=== PATIENT | female | born 1960 | race Hispanic/Latino ===

== ENCOUNTER 2016-12-30 19:08 | Emergency (ER) | payer BC, MEDICARE ==
[2016-12-30 19:19] VITALS: BP 142/93; PULSE 122; RESP 18; TEMP 99; O2SAT 100
[2016-12-30] MEDS ORDERED: Sodium Chloride 0.9% 1,000 ML IV STA (19:27)
--- NOTE | 2016-12-30 19:30 | ED PDOC ---
HPI: Back Time Seen by Provider: 12/30/16 19:18 Chief Complaint (Nursing): Back Pain Chief Complaint (Provider): Back Pain/Abdominal Pain History Per: Patient, EMS History/Exam Limitations: no limitations Onset/Duration Of Symptoms: Days (2) Current Symptoms Are (Timing): Still Present Quality Of Discomfort: "Pain" Severity: Moderate Additional Complaint(s): Ashanti Jenkins is a 56 y/o female brought in by EMS on 12/30/2016 with complaints of back pain x2 days. Per EMS/patient, pain is localized in her back with radiation to the left side of her abdomen. Patient, prior to arrival, developed episodes of non-bloody vomiting as well as nausea, prompting her to call EMS. Patient reports associated mild dysuria but denies any chest pain or shortness of breath. Patient is routinely taking Oxycodone, Methadone, and Xanax at home. No numbness, tingles, weakness. No incontinence or constipation. Of note, patient has a past medical history of breast cancer (patient has had a mastectomy). Patient reports she has been cancer-free since. Past Medical History Reviewed: Historical Data, Nursing Documentation, Vital Signs Vital Signs: Last Vital Signs Temp 99 F 12/30/16 19:16 Pulse 122 H 12/30/16 19:16 Resp 18 12/30/16 19:16 BP 142/93 H 12/30/16 19:16 Pulse Ox 100 12/30/16 19:16 - Medical History PMH: HTN Other PMH: breast cancer ; chronic pain - Surgical History Surgical History: Back Surgery (x 2) Other surgeries: mastectomy - Family History Family History: States: Unknown Family Hx - Social History Alcohol: None Drugs: Denies - Home Medications Home Medications: Ambulatory Orders Medication Instructions Recorded Ciprofloxacin HCl [Cipro] 500 mg PO BID 7 Days 12/30/16 Ibuprofen [Motrin] 600 mg PO TID 7 Days 12/30/16 Tamsulosin [Flomax] 0.4 mg PO DAILY PRN #6 cap 12/30/16 - Allergies Allergies/Adverse Reactions: Allergies Allergy/AdvReac Type Severity Reaction Status Date / Time No Known Allergies Allergy Verified 03/21/15 13:27 Review of Systems ROS Statement: Except As Marked, All Systems Reviewed And Found Negative Gastrointestinal: Positive for: Nausea, Vomiting, Abdominal Pain. Negative for : Diarrhea Genitourinary Female: Positive for: Dysuria (mild) Musculoskeletal: Positive for: Back Pain Physical Exam - Reviewed Nursing Documentation Reviewed: Yes Vital Signs Reviewed: Yes - Physical Exam Appears: Positive for: Non-toxic, No Acute Distress Head Exam: Positive for: ATRAUMATIC, NORMOCEPHALIC Skin: Positive for: Normal Color, Warm, Dry Eye Exam: Positive for: Normal appearance, EOMI, PERRL Neck: Positive for: Normal, Painless ROM, Supple Cardiovascular/Chest: Positive for: Regular Rate, Rhythm. Negative for: Murmur Respiratory: Positive for: Normal Breath Sounds. Negative for: Respiratory Distress Gastrointestinal/Abdominal: Positive for: Tenderness ((+) left flank and LLQ ) Back: Positive for: L CVA Tenderness. Negative for: R CVA Tenderness Extremity: Positive for: Normal ROM. Negative for: Tenderness, Pedal Edema, Deformity Neurologic/Psych: Positive for: Alert, Oriented (x3). Negative for: Motor/ Sensory Deficits - Laboratory Results Result Diagrams: 12/30/16 20:40 12/30/16 20:40 Interpretation Of Abn Labs: 18.4 wbc - ECG ECG: Positive for: Interpreted By Me, Viewed By Me ECG Rhythm: Positive for: Sinus Tachycardia (mild) O2 Sat by Pulse Oximetry: 100 (RA) Pulse Ox Interpretation: Normal - Progress ED Course And Treament: 2201: Stable. AAOx3. Has capacity to make decisions. Is pain free. Tolerated PO. Ambulating with no issues. Mini mental status exam intact. Does not want to stay for admission and further IV tx and evaluation. Pt. states she has to let people in her house so has to leave. Advised pain will return and infection can get worse and she can or have decreased functioning. Is aware and will AMA. Aware oral tx with antibiotics is not the right 1st line tx, but as she is leaving will give some level of tx orally. Will give IV cipro in ER. Medical Decision Making Medical Decision Makin:18 Initial Impression- Back Pain/Abd Pain Initial Plan- * CT Abd/Pelvis * EKG * CMP * Lipase * Urine Dip * CBC w/ differential * Morphine 4 mg IV * Sodium Chloride 1,000 ml IV * Toradol 30 mg IV * Zofran 4 mg IV * Re-assess Documented by Alen Rivera, acting as a scribe for Charlie Rivera MD. All medical record entries made by the Scribe were at my direction and personally dictated by me. I have reviewed the chart and agree that the record accurately reflects my personal performance of the history, physical exam, medical decision making, and the department course for this patient. I have also personally directed, reviewed, and agree with the discharge instructions and disposition. Disposition - Clinical Impression Clinical Impression: UTI (urinary tract infection), Sepsis, Nephrolithiasis - Patient ED Disposition Is Patient to be Admitted: No Counseled Patient/Family Regarding: Studies Performed, Diagnosis, Rx Given - Disposition Referrals: [facility] [Outside] - 12/31/16 Pierre Wilson MD [Staff Provider] - 12/31/16 Disposition: Against Medical Advice Disposition Time: 22:27 Condition: FAIR Additional Instructions: You are going against medical advice. You are taking your own risk. You have an infection and kidney stones. You can or have decreased functioning in general from these conditions. You are getting an antibiotics prescription as you are not willing to get IV treatment in the hospital. Return soon as possible for further evaluation and treatment. Prescriptions: Ciprofloxacin HCl [Cipro] 500 mg PO BID 7 Days Tamsulosin [Flomax] 0.4 mg PO DAILY PRN #6 cap PRN Reason: Pain Ibuprofen [Motrin] 600 mg PO TID 7 Days Instructions: Urinary Tract Infection in Women (ED), Ureteral Stones (ED)
[2016-12-30] MEDS ORDERED: HYDROmorphone 0.5 mg/0.5 ml ISec ONE (20:16)
[2016-12-30 20:45] LABS: BASO # 0.1 K/uL (0.0-0.2); BASO % 0.4 % (0.0-2.0); HEMATOCRIT 46.9 % (34.0-47.0); LYMPH # 1.5 K/uL (1.0-4.3); MEAN CELL VOLUME 82.6 fl (81.0-99.0); MEAN CORPUSCULAR HEMOGLOBIN 26.6 pg (27.0-31.0); MEAN CORPUSCULAR HGB CONC 32.2 g/dL (33.0-37.0); MEAN PLATELET VOLUME 7.9 fl (7.2-11.7); MONO # 0.7 K/uL (0.0-0.8); MONO % 3.6 % (0.0-10.0); NEUT # 16.2 K/uL (1.8-7.0); PLATELET COUNT 180 K/uL (130-400); RED CELL DISTRIBUTION WIDTH 13.7 % (11.5-14.5); WHITE BLOOD COUNT 18.4 K/uL (4.8-10.8)
[2016-12-30 21:00] LABS: ALKALINE PHOSPHATASE 77 U/L (38-126); ALT/SGPT 16 U/L (9-52); AST/SGOT 30 U/L (14-36); BILIRUBIN,TOTAL 1.2 mg/dl (0.2-1.3); BLOOD UREA NITROGEN 21 mg/dl (7-17); CALCIUM 9.3 mg/dL (8.4-10.2); CARBON DIOXIDE 26 mmol/L (22-30); CHLORIDE 97 mmol/L (98-107); GFR AFRICAN-AMERICAN > 60; GLUCOSE,RANDOM 204 mg/dL (65-105); LIPASE 12 U/L (23-300); SODIUM 138 mmol/l (132-148); TOTAL PROTEIN 7.8 G/DL (6.3-8.2)
[2016-12-30 21:03] LABS: POTASSIUM 4.6 MMOL/L (3.6-5.0)
--- NOTE | 2016-12-30 21:50 | CT ---
EXAM: CT Abdomen and Pelvis Without Intravenous Contrast CLINICAL HISTORY: 56 years old, female; Pain; Abdominal pain; Flank; Left; Prior surgery; Surgery date: 6+ months; Surgery type: Trans flap surgery, pt. Had mastectomy; Additional info: R/O stone. Sent e. D. Physician doc. With request TECHNIQUE: Axial computed tomography images of the abdomen and pelvis without intravenous contrast. This CT exam was performed using one or more of the following dose reduction techniques: automated exposure control, adjustment of the mA and/or kV according to patient size, and/or use of iterative reconstruction technique. Coronal and sagittal reformatted images were created and reviewed. EXAM DATE/TIME: 12/30/2016 7:27 PM COMPARISON: No relevant prior studies available. FINDINGS: LOWER THORAX: No infiltrate seen in the lung bases. ABDOMEN: LIVER: Liver appears enlarged, and demonstrates diffuse fatty infiltration. GALLBLADDER AND BILE DUCTS: No CT evidence of acute cholecystitis. No evidence of significant biliary ductal dilatation. PANCREAS: No CT evidence of acute pancreatitis. SPLEEN: No acute abnormality of the spleen identified. ADRENALS: No acute abnormality of the adrenal glands identified. KIDNEYS AND URETERS: 2 adjacent obstructing stones in the left mid ureter. These are best seen on image 102/series 602, and are causing moderate to severe left hydroureteronephrosis. The larger stone, located more superiorly, measures 5 mm. The smaller stone, located just inferior to the 5 mm stone, measures 3 mm. There is also moderate to marked left perinephric stranding and fluid. The fluid extends inferiorly into the left abdominal and pelvic retroperitoneal space. Tiny, nonobstructing left renal stone. 2.4 cm indeterminate lesion in the right kidney, image not definitely a cyst given its density. Recommend follow-up renal ultrasound or renal protocol CT for further evaluation, on a nonemergent basis, unless otherwise clinically indicated. STOMACH AND BOWEL: Colonic diverticulosis, with no evidence of acute diverticulitis. Otherwise, no significant abnormality of the bowel is identified. No evidence of small bowel obstruction. No acute abnormality of the stomach or duodenum identified. APPENDIX: Appendix is seen, and is within normal limits in appearance. PELVIS: BLADDER: No acute abnormality of the bladder identified. REPRODUCTIVE:No acute abnormality of the reproductive organs is seen. No acute abnormality of the uterus identified. No evidence of large adnexal masses. ABDOMEN and PELVIS: INTRAPERITONEAL SPACE: No evidence of free intraperitoneal air or fluid. BONES/JOINTS: No acute fractures or other acute bony abnormality noted. SOFT TISSUES: Post surgical changes involving the anterior abdominal and pelvic wall. Small umbilical hernia, containing only fat. VASCULATURE: Atherosclerotic calcification. No evidence of abdominal aortic aneurysm. IMPRESSION: - 2 adjacent obstructing stones in the left mid ureter. The larger stone measures 5 mm. - Left retroperitoneal and perinephric fluid, felt to be related to the obstructing left ureteral stone. - Otherwise, no evidence of significant acute process. - Incidental indeterminate right renal lesion. See above recommendations. - Colonic diverticulosis. - Enlarged, fatty liver. - See above for remaining findings.
[2016-12-30] MEDS ORDERED: Ciprofloxacin 400mg/200ml D5W 200 ML IVPB STA (22:25)
[2016-12-31 00:43] LABS: METAMYELOCYTE 1 % (0-0); MYELOCYTE 1 % (0-0); NEUTROPHIL 77 % (42-75); REACTIVE LYMPHOCYTES 5 % (0-0); TOTAL CELLS COUNTED 100
[2016-12-31] MEDS ORDERED: HYDROmorphone 0.5 mg/0.5 ml ISec ONE (09:57)
--- NOTE | 2016-12-31 16:27 | CARD ---
APPROVED REPORT EKG Measurement Heart [id number] <Conclusion> Sinus tachycardia Inferior infarct, age undetermined Abnormal ECG
== END 2016-12-30 22:33 | disposition left against medical advice (07) ==
LOC: H.ER 19:08
DX: R10.9 Unspecified abdominal pain (principal)

== ENCOUNTER 2016-12-31 08:53 | Inpatient (IN) | payer MEDICARE, MEDICAID ==
[2016-12-31] MEDS ORDERED: Sodium Chloride 0.9% 1,000 ML IV STA (09:18)
[2016-12-31] MEDS ORDERED: Ciprofloxacin 400mg/200ml D5W 200 ML IVPB STA (09:22)
--- NOTE | 2016-12-31 09:27 | ED PDOC ---
HPI: Abdomen Time Seen by Provider: 12/31/16 09:08 Chief Complaint (Nursing): Abdominal Pain Chief Complaint (Provider): Abdominal Pain History Per: Patient History/Exam Limitations: no limitations Onset/Duration Of Symptoms: Days Current Symptoms Are (Timing): Still Present Severity: Moderate Quality Of Discomfort: "Pain" Associated Symptoms: Back Pain. denies: Nausea, Vomiting, Urinary Symptoms Exacerbating Factors: None Alleviating Factors: None Additional Complaint(s): Patient is a 56 year old female who presents to ED for left flank pain that began last night. Patient was initially evaluated in ED at this time, found to have multiple left sided kidney stones, CT was performed and patient was offered admission. Patient however signed AMA. Denies fever, nausea or vomiting. Past Medical History Reviewed: Historical Data, Nursing Documentation, Vital Signs Vital Signs: Last Vital Signs Temp 100.1 F H 12/31/16 08:57 Pulse 103 H 12/31/16 08:57 Resp 20 12/31/16 08:57 BP 120/72 12/31/16 08:57 Pulse Ox 98 12/31/16 09:36 - Medical History PMH: HTN, Hyperthyroidism - Surgical History Surgical History: Back Surgery (x 2) - Family History Family History: States: Unknown Family Hx - Living Arrangements Living Arrangements: With Family - Home Medications Home Medications: Ambulatory Orders Medication Instructions Recorded Ciprofloxacin HCl [Cipro] 500 mg PO BID 7 Days 12/30/16 Ibuprofen [Motrin] 600 mg PO TID 7 Days 12/30/16 Tamsulosin [Flomax] 0.4 mg PO DAILY PRN #6 cap 12/30/16 - Allergies Allergies/Adverse Reactions: Allergies Allergy/AdvReac Type Severity Reaction Status Date / Time No Known Allergies Allergy Verified 03/21/15 13:27 Review of Systems ROS Statement: Except As Marked, All Systems Reviewed And Found Negative Constitutional: Negative for: Fever, Chills Gastrointestinal: Positive for: Abdominal Pain. Negative for: Nausea, Vomiting Genitourinary Female: Negative for: Dysuria, Frequency, Hematuria Neurological: Negative for: Weakness, Numbness Physical Exam - Reviewed Nursing Documentation Reviewed: Yes Vital Signs Reviewed: Yes - Physical Exam Appears: Positive for: Non-toxic, In Acute Distress (moderate painful distress ) Skin: Positive for: Normal Color, Warm Eye Exam: Positive for: Normal appearance Neck: Positive for: Normal, Painless ROM Cardiovascular/Chest: Positive for: Regular Rate, Rhythm. Negative for: Murmur Respiratory: Positive for: Normal Breath Sounds. Negative for: Respiratory Distress Gastrointestinal/Abdominal: Positive for: Normal Exam. Negative for: Tenderness , Distended Back: Positive for: Normal Inspection, L CVA Tenderness. Negative for: R CVA Tenderness Extremity: Positive for: Normal ROM Neurologic/Psych: Positive for: Alert, Oriented - ECG O2 Sat by Pulse Oximetry: 98 (RA) Pulse Ox Interpretation: Normal Medical Decision Making Medical Decision Making: Time: 914 Initial impression: Renal colic Initial plan: -- CMP -- Urine dip -- CBC -- NSF, Morphine, Toradol and Cipro CT results reviewed Impression: - adjacent obstructing stones in the left mid ureter. The larger stone measures 5mm - Left retropeitoneal and perinephric fluid, felt to be related to the obstructing left ureteral stone - Otherwise, no evidence of significant acute process - Incidental indeterminate right renal lesion. - Colonic diverticulosis - Enlarged Fatty live Scribe Attestation: Documented by Allegra Carballo acting as a scribe for Regan Cook MD MD Scribe Attestation: All medical record entries made by the Scribe were at my direction and personally dictated by me. I have reviewed the chart and agree that the record accurately reflects my personal performance of the history, physical exam, medical decision making, and the department course for this patient. I have also personally directed, reviewed, and agree with the discharge instructions and disposition. Disposition - Clinical Impression Clinical Impression: Nephrolithiasis, Hydronephrosis - Patient ED Disposition Is Patient to be Admitted: Yes - Disposition Disposition Time: 10:07 Condition: FAIR - Pt Status Changed To: Hospital Disposition Of: Observation - POA Present On Arrival: None
[2016-12-31] MEDS ORDERED: HYDROmorphone 0.5 mg/0.5 ml ISec IVP STA (10:02)
[2016-12-31 10:17] LABS: BASO # 0.1 K/uL (0.0-0.2); BASO % 0.4 % (0.0-2.0); EOS # 0.1 K/uL (0.0-0.7); EOS % 0.5 % (0.0-4.0); HEMATOCRIT 44.1 % (34.0-47.0); LYMPH # 3.2 K/uL (1.0-4.3); LYMPH % 15.8 % (20.0-40.0); MEAN CELL VOLUME 84.2 fl (81.0-99.0); MEAN CORPUSCULAR HEMOGLOBIN 26.6 pg (27.0-31.0); MEAN CORPUSCULAR HGB CONC 31.6 g/dL (33.0-37.0); MEAN PLATELET VOLUME 8.2 fl (7.2-11.7); MONO # 1.7 K/uL (0.0-0.8); MONO % 8.4 % (0.0-10.0); NEUT # 15.1 K/uL (1.8-7.0); NEUT % 74.9 % (50.0-75.0); NRBC % 0.1 % (0.0-0.0); RED CELL DISTRIBUTION WIDTH 14.4 % (11.5-14.5); WHITE BLOOD COUNT 20.2 K/uL (4.8-10.8)
[2016-12-31 11:31] LABS: ALB/GLOB RATIO 0.9 (1.0-2.1); ALKALINE PHOSPHATASE 82 U/L (38-126); AST/SGOT 60 U/L (14-36); BILIRUBIN,TOTAL 0.9 mg/dl (0.2-1.3); BLOOD UREA NITROGEN 36 mg/dl (7-17); CALCIUM 8.2 mg/dL (8.4-10.2); CARBON DIOXIDE 25 mmol/L (22-30); CHLORIDE 97 mmol/L (98-107); GFR AFRICAN-AMERICAN 37; GLUCOSE,RANDOM 234 mg/dL (65-105); POTASSIUM 4.3 MMOL/L (3.6-5.0); SODIUM 135 mmol/l (132-148); TOTAL PROTEIN 6.9 G/DL (6.3-8.2)
[2016-12-31 11:32] LABS: ALT/SGPT < 6 U/L (9-52)
[2016-12-31 14:03] LABS: URINE BACTERIA MANY (<OCC); URINE BILIRUBIN NEGATIVE (NEGATIVE); URINE BLOOD MODERATE (NEGATIVE); URINE COLOR AMBER (YELLOW); URINE GLUCOSE (UA) 50 mg/dL (Normal); URINE KETONE NEGATIVE (NEGATIVE); URINE LEUKOCYTE ESTERASE LARGE Leu/uL (Negative); URINE PROTEIN 100 mg/dL (NEGATIVE); URINE UROBILINOGEN 0.2-1.0 mg/dL (0.2-1.0); WBC CLUMPS FEW /hpf; WBC URINE 495 /hpf (0-5)
--- NOTE | 2016-12-31 14:26 | CP.PCM.HP ---
History of Present Illness - History of Present Illness History of Present Illness: 56 y/o F, brought to ER [facility] by EMS due to L Flank , Abdominal pain, onset night [employer] with no relief. Pt arrives to ER c/o of moderate abdominal pain, Left flank, moderate intensity 6:10, radiated to left lower back,and LLQ , at times pain is severe of 10:10. Aggravated factor: Difficulty urination. Pt presented yesterday 4-9 to ER [facility] with same complaints, but after evaluation Patient signed AMA and left hospital. At this time, on 12/30/16, Pt had CT Abd/Pelv showing + for L Ureter stones x2 , L hydroureteronephrosis, L perinephric stranding and fluid, R Renal stone , Colonic Diverticulosis without evidence of Diverticulitis. EKG 12/30/16 showed: Sinus Tachycardia. Pt denied: Fever, chills, n/v/d, dizziness, CP, SOB, cough, sick contact, recent travel. PMHx: CKD, Hypothyroidism, HTN, Hx of L Breast Ca Stge IV , L Mastectomy with abdominal flap , current Tx with Methadone at [place], [place]. Present on Admission - Present on Admission Any Indicators Present on Admission: No Review of Systems - Constitutional Constitutional: Other (negative) - EENT Eyes: Other (negative) Ears: Other (negative) Nose/Mouth/Throat: Other (negative) - Cardiovascular Cardiovascular: Rapid Heart Rate - Respiratory Respiratory: Other (negative) - Gastrointestinal Gastrointestinal: Abdominal Pain - Genitourinary Genitourinary: Voiding Freq/Small Amts - Integumentary Integumentary: Other (negative) - Neurological Neurological: Other (negative) - Psychiatric Psychiatric: Anxiety - Endocrine Endocrine: Other (negative) - Hematologic/Lymphatic Hematologic: Other (negative) Past Patient History - Infectious Disease Hx of Infectious Diseases: None - Past Medical History & Family History Pertinent Family History: Unknown - Past Social History Smoking Status: Light Smoker < 10 Cigarettes Daily Alcohol: None Drugs: Denies Home Situation {Lives}: Alone - CARDIAC Hx Cardiac Disorders: Yes Hx Hypertension: Yes - PULMONARY Hx Respiratory Disorders: No - NEUROLOGICAL Hx Neurological Disorder: No - HEENT Hx HEENT Problems: No - RENAL Hx Chronic Kidney Disease: Yes - ENDOCRINE/METABOLIC Hx Endocrine Disorders: Yes Hx Diabetes Mellitus Type 2: No (Denies DM) Hx Hypothyroidism: Yes - HEMATOLOGICAL/ONCOLOGICAL Hx Blood Disorders: Yes Hx Cancer: Yes (Stage 4 Breast) Other/Comment: L Breast Ca - INTEGUMENTARY Hx Dermatological Problems: No - MUSCULOSKELETAL/RHEUMATOLOGICAL Hx Musculoskeletal Disorders: No - GASTROINTESTINAL Hx Gastrointestinal Disorders: No - GENITOURINARY/GYNECOLOGICAL Hx Genitourinary Disorders: Yes Hx Urinary Tract Infection: Yes - PSYCHIATRIC Hx Psychophysiologic Disorder: Yes Hx Anxiety: Yes Hx Substance Use: No - SURGICAL HISTORY Hx Surgeries: Yes Hx Mastectomy: Yes (L breast) - ANESTHESIA Hx Anesthesia: Yes Hx Anesthesia Reactions: No Meds Allergies/Adverse Reactions: Allergies Allergy/AdvReac Type Severity Reaction Status Date / Time No Known Allergies Allergy Verified 03/21/15 13:27 Physical Exam - Constitutional Appears: No Acute Distress - Head Exam Head Exam: NORMAL INSPECTION - Eye Exam Eye Exam: PERRL - ENT Exam ENT Exam: Normal Oropharynx - Neck Exam Neck exam: Positive for: Normal Inspection - Respiratory Exam Respiratory Exam: NORMAL BREATHING PATTERN Additional comments: Left Mastectomy with abdominal flap - Cardiovascular Exam Cardiovascular Exam: REGULAR RHYTHM - GI/Abdominal Exam GI & Abdominal Exam: Distended, Normal Bowel Sounds, Soft, Tenderness (LLQ- suprapubic) - Extremities Exam Extremities exam: Positive for: normal inspection - Back Exam Back exam: tenderness (L flank) - Neurological Exam Neurological exam: Alert, Oriented x3 Additional comments: No motor sensory deficit. - Psychiatric Exam Psychiatric exam: Anxious - Skin Skin Exam: Warm Results - Vital Signs Recent Vital Signs: Last Vital Signs Temp 98.9 F 12/31/16 12:01 Pulse 105 H 12/31/16 12:01 Resp 19 12/31/16 12:01 BP 137/73 12/31/16 12:01 Pulse Ox 96 12/31/16 11:41 reviewed J.PJanee - Labs Result Diagrams: 01/01/17 06:20 01/01/17 06:20 Labs: Laboratory Results - last 24 hr 12/31/16 12/31/16 12/31/16 09:52 10:50 13:15 WBC 20.2 H RBC 5.24 H Hgb 13.9 Hct 44.1 MCV 84.2 MCH 26.6 L MCHC 31.6 L RDW 14.4 Plt Count 154 MPV 8.2 Neut % (Auto) 74.9 Lymph % (Auto) 15.8 L [place] % (Auto) 8.4 Eos % (Auto) 0.5 Baso % (Auto) 0.4 Neut # 15.1 H Lymph # 3.2 [place] # 1.7 H Eos # 0.1 Baso # 0.1 Sodium 135 Potassium 4.3 Chloride 97 L Carbon Dioxide 25 Anion Gap 17 BUN 36 H Creatinine 1.7 H Est GFR ( Amer) 37 Est GFR (Non-Af Amer) 31 Random Glucose 234 H Calcium 8.2 L Total Bilirubin 0.9 AST 60 H D ALT < 6 L D Alkaline Phosphatase 82 Total Protein 6.9 Albumin 3.4 L Globulin 3.6 Albumin/Globulin Ratio 0.9 L Urine Color Crissy Urine Clarity Cloudy Urine pH 5.0 Ur Specific Williams 1.025 Urine Protein 100 Urine Glucose (UA) 50 Urine Ketones Negative Urine Blood Moderate Urine Nitrate Negative Urine Bilirubin Negative Urine Urobilinogen 0.2-1.0 Ur Leukocyte Esterase Large Urine WBC Clumps (Auto) Few H Urine Microscopic WBC 495 H Ur Squamous Epith Cells 4 Urine Bacteria Many H Hyaline Casts 11-20 H Reviewed J.P. - EKG Data EKG comments: From 12/30/16 Reviewed J.P. - Imaging and Cardiology Chest x-ray Status: Report reviewed by me (From 12/30/16 J.P.) Assessment & Plan (1) Ureter colic Status: Acute Comment: Left (2) Ureteral calculus, left Status: Acute Comment: two calculus with L ureteronephrosis (3) Sepsis Status: Acute (4) UTI (urinary tract infection) Status: Acute (5) Renal calculus, right Status: Acute Comment: non obstructive (6) CKD (chronic kidney disease) Status: Acute (7) Diabetes mellitus Status: Acute Comment: Hyperglicemia (8) Stage IV carcinoma of breast Status: Chronic (9) Hypothyroidism Status: Acute - Assessment and Plan (Free Text) Plan: Continue Rocephin, Cipro , Dilaudid , Methadone , Gabapentin, blood sugar control Urology consult appreciated , for Cysto , stent in am
[2016-12-31] MEDS ORDERED: Albuterol HFA 90 mcg/actuation (8 g) IH PRN (14:43)
--- NOTE | 2016-12-31 18:15 | CON ---
DATE: 12/31/2016 TIME: Roughly 4:40 p.m. BRIEF HISTORY: The patient is a 56-year-old slightly obese white female with a history of acute onse t of left renal colic which began 2 days prior to admission, eventually requiring her to come to [facility] where an abdominal and pelvic CT stone survey showed 2 obstructing mid ureteral stones, one 5 mm and one 3 mm. The 3 mm stone is below the 5 mm stone. She also has a tiny left nonobstructing renal stone. She also has a cystic type lesion in the left kidney, which is atif ble to be completely identified without IV contrast. When she first came to the ER signed out AMA be cause she had some business to attend to and then she returned for admission. PAST MEDICAL HISTORY: Consistent with thyroid disease and breast cancer, stage IV. She is currently being followed at [facility] for her breast cancer and they have her on methadone for treatment of her pain. SOCIAL HISTORY: She is a very mild social drinker and tobacco use. ALLERGIES: She has no known allergies to any medications. FAMILY HISTORY: Negative for kidney stones. This is her first episode of kidney stones. The patient was started on IV Cipro for this hospitalization. PHYSICAL EXAMINATION: GENERAL: She is mildly obese. ABDOMEN: Soft, not distended. She has no right CVA tenderness and she has 3+ left CVA tenderness, o n Dilaudid. HEENT: Grossly within normal limits. LABORATORY EVALUATION: CBC which shows a WBC count of 20.2, hemoglobin of 13.9, hematocrit of 41.1 w ith a platelet count of 154,000. Her chem profile shows a random glucose of 234, which is markedly e levated. Sodium was 135, potassium 4.3, chloride 97, CO2 25, BUN and creatinine 36 and 1.7 respectiv ishaan with a GFR of 31 indicating chronic kidney disease stage III. Calcium was 8.2. AST was 60, whic h was elevated and ALT was 6. Alk phosphatase was 82. Urinalysis on 12/31/2016 showed color was amb er, clarity was cloudy, pH was 5.0, specific gravity 1.025, protein was 100, urine glucose was 50, ke tones were negative, blood was moderate, nitrite was negative, bilirubin was negative, urobilinogen w as 0.2 to 1.0. Leukocyte esterase was large. There were a few clumps of WBCs. There were 495 WBCs and many bacteria per power field. There were also some hyaline casts, 11-20. DIAGNOSTIC IMPRESSION FOR THIS FEMALE PATIENT: 1. Left mid ureterolithiasis with left nephrolithiasis. 2. Moderate to severe left hydronephrosis with some perinephric stranding and fluid. 3. Probable left pyelonephritis. PLAN: To schedule the patient for cystoscopy, insertion of left ureteral stent in a.m. We will also repeat a CBC and SMA-7 in the morning. Pierre Wilson MD cc: [phone] TT: 12/31/2016 18:14:53 Confirmation # [id number] Dictation # [id number] mn
[2016-12-31] MEDS: Ciprofloxacin 400mg/200ml D5W 200 ML IVPB SCH (21:28)
[2016-12-31] MEDS: Insulin Lispro (humaLOG) 100 Units/ml Inj SC SCH (23:07)
[2017-01-01] MEDS: Levothyroxine 125 MCG TAB PO SCH (06:49)
[2017-01-01] MEDS: Insulin Lispro (humaLOG) 100 Units/ml Inj SC SCH ×4 (07:08→22:00)
[2017-01-01 07:42] LABS: HEMATOCRIT 36.3 % (34.0-47.0); MEAN CORPUSCULAR HEMOGLOBIN 26.8 pg (27.0-31.0); MEAN CORPUSCULAR HGB CONC 32.3 g/dL (33.0-37.0); RED CELL DISTRIBUTION WIDTH 13.8 % (11.5-14.5); WHITE BLOOD COUNT 13.2 K/uL (4.8-10.8)
[2017-01-01 08:01] LABS: BILIRUBIN,TOTAL 0.6 mg/dl (0.2-1.3); POTASSIUM 4.4 MMOL/L (3.6-5.0); TOTAL PROTEIN 6.6 G/DL (6.3-8.2)
[2017-01-01] MEDS: Ciprofloxacin 400mg/200ml D5W 200 ML IVPB SCH (08:33)
--- NOTE | 2017-01-01 10:32 | RAD ---
HISTORY: Medical clearance for surgery COMPARISON: No prior. FINDINGS: LUNGS: No active pulmonary disease. PLEURA: No significant pleural effusion identified, no pneumothorax apparent. CARDIOVASCULAR: No radiographic findings to suggest acute or significant cardiovascular disease. OSSEOUS STRUCTURES: No significant abnormalities. VISUALIZED UPPER ABDOMEN: Normal. OTHER FINDINGS: None. IMPRESSION: No active disease.
[2017-01-01] MEDS ORDERED: Propofol 10 mg/ml Inj (20 ML) ONE (10:51)
[2017-01-01] MEDS ORDERED: Ketamine 50 mg/ml Inj (10 ml) ONE (10:51)
[2017-01-01] MEDS ORDERED: Midazolam 2 MG/2 ML VIAL ONE (10:51)
--- NOTE | 2017-01-01 11:01 | CP.PCM.PCO ---
Physician Communication Note - Physician Communication Note Physician Communication Note: Per Dr. Evans, pt is medically cleared for proposed surgery (cysto w/stent)
[2017-01-01] MEDS ORDERED: Sodium Chloride 0.9% 1,000 ML IV ONE (11:48)
[2017-01-01] MEDS ORDERED: Dexamethasone 4 mg/1 ml IVP PRN (12:34)
--- NOTE | 2017-01-01 13:09 | OP ---
PROCEDURE DATE: 01/01/2017 PREOPERATIVE DIAGNOSES: 1. Urosepsis. 2. Two mid left ureteral stones - 5 mm and 3 mm, with moderate to severe left hydronephrosis. PROCEDURE: Cystoscopy, left ureteral catheterization, insertion of left ureteral multilength stent. SURGEON: Pierre Wilson MD. ANESTHESIA: Rodriguez. DESCRIPTION OF PROCEDURE: The patient was placed on the cystoscopy table in the dorsal lithotomy pos ition and prepped and draped in usual sterile fashion with Betadine solution. Multiple KUBs were obt ained under fluoro, which did not definitely reveal the left mid ureteral stones. Next, using a 21-Albanian Olympus cystoscope, which was inserted into the bladder, and using sterile wa ter as irrigating solution throughout the entire procedure, a 6-Albanian open-ended ureteral stent was easily passed into the left ureteral orifice and up to the area of the left kidney in an attempt to drain the urine from the left kidney above the mid ureteral stones. However, the patient, over 15-mi nute period, could not produce any urine on this side. It was decided at this time to just insert th e left ureteral stent and get a post-stent bladder urine for culture and sensitivity. A pre-stent bl adder urine for culture and sensitivity was also obtained. Next, using the open-ended 6-Albanian ureteral stent, a microvasive 0.035 inch 150 cm sensor wire was p assed into the open-ended ureteral stent up the area of the left renal pelvis, and with at least 2 co ils of the sensing wire seen in the left renal pelvis, the open-ended ureteral stent was removed, and a microvasive 6-[place]ian multilength stent was inserted over the guidewire and passed into the left ur eteral orifice under direct vision and fluoroscopic control, passed up to the area of the left renal pelvis. With at least 2 coils seen in the left renal pelvis, and the end of the stent seen in the bl adder, the sensor wire was removed, and at least 2 coils were now seen in the bladder. It looked lik e some purulent exudate was seen in the bladder after the insertion of the left ureteral stent, and a post-stent urine was sent for culture and sensitivity. The patient tolerated the procedure well without any blood loss and was brought to the recovery area in satisfactory condition. The patient did spike a temp to 102.6 earlier this a.m., and the patient received Rocephin 1 gram pre op. The patient was already on Cipro 400 mg IV piggyback q. 12. The bladder was examined also during this procedure and found to be 1+ trabeculated. There were some patchy areas seen in the bladder, especially on the trigone, which appeared to be either squamous me taplasia or some cholesterol deposits seen in the bladder. This will be evaluated postoperatively. We will obtain some urine for cytology and FISH cytologies postoperatively, and this will be evaluate d at a later date after taking care of her mid left ureteral stones. Pierre Wilson MD cc:Tony Evans MD [id number] TT: 01/01/2017 13:08:23 jn
--- NOTE | 2017-01-01 13:17 | CP.PCM.CON ---
History of Present Illness - History of Present Illness History of Present Illness: Patient is s/p cysto, stent placement. Patient has a history of chronic pain from neuropathy and post-mastectomy pain. She is under the care of Dr. Moreno for pain management, and her pain is being treated with Methadone 10mg q6h, Roxicodone 30mg, and Neurontin. During anesthesia for surgery, after LMA placement, her end-tidal CO2 was in the 80's to 90's. Her respiratory drive didn't stimulate breathing when her end -tidal CO2 was in the 60-70's. I believe she was being over-narcotized. Past Patient History - Infectious Disease Hx of Infectious Diseases: None - Past Medical History & Family History Past Medical History?: Yes - Past Social History Smoking Status: Light Smoker < 10 Cigarettes Daily Alcohol: None Drugs: Denies Home Situation {Lives}: Alone - CARDIAC Hx Cardiac Disorders: Yes Hx Hypertension: Yes - PULMONARY Hx Respiratory Disorders: No - NEUROLOGICAL Hx Neurological Disorder: No - HEENT Hx HEENT Problems: No - RENAL Hx Chronic Kidney Disease: Yes - ENDOCRINE/METABOLIC Hx Endocrine Disorders: Yes Hx Diabetes Mellitus Type 2: No (Denies DM) Hx Hypothyroidism: Yes - HEMATOLOGICAL/ONCOLOGICAL Hx Blood Disorders: Yes Hx Cancer: Yes (Stage 4 Breast) Other/Comment: L Breast Ca - INTEGUMENTARY Hx Dermatological Problems: No - MUSCULOSKELETAL/RHEUMATOLOGICAL Hx Musculoskeletal Disorders: No - GASTROINTESTINAL Hx Gastrointestinal Disorders: No - GENITOURINARY/GYNECOLOGICAL Hx Genitourinary Disorders: Yes Hx Urinary Tract Infection: Yes - PSYCHIATRIC Hx Psychophysiologic Disorder: Yes Hx Anxiety: Yes Hx Substance Use: No - SURGICAL HISTORY Hx Surgeries: Yes Hx Mastectomy: Yes (L breast) - ANESTHESIA Hx Anesthesia: Yes Hx Anesthesia Reactions: No Meds Allergies/Adverse Reactions: Allergies Allergy/AdvReac Type Severity Reaction Status Date / Time No Known Allergies Allergy Verified 03/21/15 13:27 - Medications Medications: Current Medications Acetaminophen (Tylenol 325mg Tab) 650 mg PO Q4 PRN PRN Reason: Temp 100 and above Last Admin: 01/01/17 08:45 Dose: 650 mg Albuterol (Ventolin Hfa 90 Mcg/Actuation (8 G)) 2 puff IH Q6H PRN PRN Reason: Shortness of Breath Alprazolam (Xanax) 2 mg PO Q8 PRN PRN Reason: Agitation Dexamethasone (Decadron Inj) 4 mg IVP ONCE PRN PRN Reason: Nausea/Vomiting Stop: 01/01/17 14:34 Gabapentin (Neurontin) 400 mg PO BID [facility] Last Admin: 01/01/17 11:13 Dose: Not Given Hydromorphone HCl (Dilaudid) 4 mg IVP Q4 PRN PRN Reason: Pain, severe (8-10) Last Admin: 01/01/17 09:57 Dose: 4 mg Ceftriaxone Sodium 1 gm/ (Sodium Chloride) 100 mls @ 100 mls/hr IVPB DAILY [facility] Last Admin: 01/01/17 11:12 Dose: 100 mls/hr Sodium Chloride (Sodium Chloride 0.9%) 1,000 mls @ 100 mls/hr IV .Q10H [facility] Stop: 01/02/17 09:16 Ceftriaxone Sodium 1 gm/ (Sodium Chloride) 100 mls @ 100 mls/hr IVPB DAILY [facility] Insulin Human Lispro (Humalog) 0 units SC ACHS [facility] PRN Reason: Protocol Last Admin: 01/01/17 11:39 Dose: Not Given Levothyroxine Sodium (Synthroid) 125 mcg PO DAILY@0630 [facility] Last Admin: 01/01/17 06:49 Dose: Not Given Methadone HCl (Methadone) 10 mg PO QID [facility] Last Admin: 01/01/17 11:13 Dose: Not Given Ondansetron HCl (Zofran Inj) 4 mg IVP ONCE PRN PRN Reason: Nausea/Vomiting Stop: 01/01/17 14:35 Tamsulosin HCl (Flomax) 0.4 mg PO DAILY PRN PRN Reason: Pain Physical Exam - Respiratory Exam Respiratory Exam: NORMAL BREATHING PATTERN - Cardiovascular Exam Cardiovascular Exam: REGULAR RHYTHM Results - Vital Signs Recent Vital Signs: Last Vital Signs Temp 99.7 F H 01/01/17 12:30 Pulse 98 H 01/01/17 12:30 Resp 18 01/01/17 12:30 BP 138/79 01/01/17 12:30 Pulse Ox 100 01/01/17 12:30 - Labs Result Diagrams: 01/01/17 06:20 01/01/17 06:20 Labs: Laboratory Results - last 24 hr 01/01/17 11:02 POC Glucose (mg/dL) 178 H Assessment & Plan - Assessment and Plan (Free Text) Assessment: 56 yo woman w/ chronic pain, s/p cysto + stent for renal calculi. - continue Methadone - d/c Dilaudid 4mg IV, this is too strong for her, decrease PRN medication to Dilaudid 2mg IV - patient may resume Methadone and Roxicodone upon discharge - I will inform Dr. Moreno regarding patient's admission
--- NOTE | 2017-01-01 15:25 | RAD ---
PROCEDURE: Fluoroscopy up to 1 hr. HISTORY: CYSTO: LEFT STENT PLACEMENT COMPARISON: None TECHNIQUE: Standard protocol for this study/examination. FINDINGS: Submitted images from the current procedure: 21.0 IMPRESSION: Less than 1 hr fluoroscopic time utilized during performance of the procedure.
--- NOTE | 2017-01-01 16:32 | RAD ---
HISTORY: left mid ureteral stones COMPARISON: No prior. FINDINGS: BOWEL: Unremarkable bowel gas pattern. Left ureteral stent noted. There is no urinary calculus seen along the course of the ureteral stent. No other abnormal intra-abdominal calcifications are appreciated. BONES: Normal. OTHER FINDINGS: None. IMPRESSION: Left ureteral stent. No ureteral calculus appreciated.
[2017-01-01] MEDS: Sodium Chloride 0.9% 1,000 ML IV SCH ×2 (20:05→23:29)
--- NOTE | 2017-01-01 20:17 | CARD ---
APPROVED REPORT EKG Measurement Heart [id number] <Conclusion> Normal sinus rhythm Inferior infarct, age undetermined Abnormal ECG
--- NOTE | 2017-01-02 08:35 | CP.PCM.PN ---
Subjective - Date & Time of Evaluation Date of Evaluation: 01/02/17 Time of Evaluation: 08:10 - Subjective Subjective: Patient is s/p cysto. She states she's feeling better. She hasn't complained about Dilaudid IV dosage being cut in half, in fact she refused Methadone yesterday at one time. Like I said before, patient is probably somewhat overnarcotized on her regimen. Objective - Vital Signs/Intake and Output Vital Signs (last 24 hours): Temp Pulse Resp BP Pulse Ox 98.2 F 82 18 122/78 93 L 01/02/17 07:38 01/02/17 07:38 01/02/17 07:38 01/02/17 07:38 01/02/17 07:38 - Medications Medications: Current Medications Acetaminophen (Tylenol 325mg Tab) 650 mg PO Q4 PRN PRN Reason: Temp 100 and above Last Admin: 01/02/17 03:31 Dose: 650 mg Albuterol (Ventolin Hfa 90 Mcg/Actuation (8 G)) 2 puff IH Q6H PRN PRN Reason: Shortness of Breath Alprazolam (Xanax) 2 mg PO Q8 PRN PRN Reason: Agitation Last Admin: 01/01/17 23:29 Dose: 2 mg Gabapentin (Neurontin) 400 mg PO BID [facility] Last Admin: 01/01/17 18:51 Dose: 400 mg Hydromorphone HCl (Dilaudid) 2 mg IVP Q4H PRN PRN Reason: Pain, severe (8-10) Last Admin: 01/02/17 01:30 Dose: 2 mg Ceftriaxone Sodium 1 gm/ (Sodium Chloride) 100 mls @ 100 mls/hr IVPB DAILY [facility] Last Admin: 01/01/17 11:12 Dose: 100 mls/hr Sodium Chloride (Sodium Chloride 0.9%) 1,000 mls @ 100 mls/hr IV .Q10H [facility] Stop: 01/02/17 09:16 Last Admin: 01/01/17 23:29 Dose: 100 mls/hr Ceftriaxone Sodium 1 gm/ (Sodium Chloride) 100 mls @ 100 mls/hr IVPB DAILY [facility] Insulin Human Lispro (Humalog) 0 units SC ACHS [facility] PRN Reason: Protocol Last Admin: 01/01/17 22:00 Dose: Not Given Levothyroxine Sodium (Synthroid) 125 mcg PO DAILY@0630 [facility] Last Admin: 01/01/17 06:49 Dose: Not Given Methadone HCl (Methadone) 10 mg PO QID [facility] Last Admin: 01/01/17 22:00 Dose: Not Given Tamsulosin HCl (Flomax) 0.4 mg PO DAILY PRN PRN Reason: Pain - Labs Labs: PT 12.2 SECONDS (9.6-11.2) H 01/01/17 06:20 INR 1.17 (0.92-1.08) H 01/01/17 06:20 APTT 35.0 SECONDS (23.3-32.5) H 01/01/17 06:20 - Respiratory Exam Respiratory Exam: NORMAL BREATHING PATTERN - Cardiovascular Exam Cardiovascular Exam: REGULAR RHYTHM Assessment and Plan - Assessment and Plan (Free Text) Assessment: 56 yo woman w/ chronic pain. S/p cysto. - continue current regimen - patient to return to home regimen upon discharge - patient should see Dr. Moreno immediately after discharge
--- NOTE | 2017-01-02 08:49 | PQF GENQUE ---
This form is a permanent part of the medical record 01/02/17 Dr. Evans, Documentation of a history of CKD. BUN 36->33, Creat 1.7-> 1.3, GFR 37-> 42. Admitted for left mid ureterolithiasis with left nephrolithiasis and moderate to severe left hydronephrosis . Please clarify acuity of kidney failure: [ ] Acute [ ] Chronic along with the stage [ ] Acute on chronic [ ] Other (please specify) [ ] Unable to determine [ ] Unknown Clarification of your documentation is requested to better reflect the severity of illness and intensity of treatment of your patient. PHYSICIAN'S RESPONSE Please clarify acuity of kidney failure: [ ] Acute [ ] Chronic along with the stage [ ] Acute on chronic [ ] Other (please specify) [ ] Unable to determine [ ] Unknown Based on your medical judgment of the clinical indicators outlined above please clarify the following: [] Practitioner response [] If unable to determine, please check the box, sign and date. Present On Admission (POA) Indicator: [] Present at the time of admission [] Not present at the time of admission [] Clinically Undetermined In responding to this query, please exercise your independent professional judgment. The fact that a question is asked does not imply that any particular answer is desired or expected. Thank you for your clarification on this documentation. If you have any questions please call:[phone] * Thank you, Roxana Moreau RN [facility]
--- NOTE | 2017-01-02 08:58 | PQF GENQUE ---
This form is a permanent part of the medical record 01/02/17 Dr. Evans, After workup please clarify the possible etiology of the sepsis . Admitted for left mid ureterolithiasis with left nephrolithiasis and moderate to severe left hydronephrosis. Temperature maximum 102.9, HR 119, WBC 20.2 with a left shift. Urine cs growing gram negative rods and blood cs pending. Treated with IVAB. Clarification of your documentation is requested to better reflect the severity of illness and intensity of treatment of your patient. PHYSICIAN'S RESPONSE [ ] Sepsis due to [ ] Unable to determine etiology [ ] Other explanation Based on your medical judgment of the clinical indicators outlined above please clarify the following: [] Practitioner response [] If unable to determine, please check the box, sign and date. Present On Admission (POA) Indicator: [] Present at the time of admission [] Not present at the time of admission [] Clinically Undetermined In responding to this query, please exercise your independent professional judgment. The fact that a question is asked does not imply that any particular answer is desired or expected. Thank you for your clarification on this documentation. If you have any questions please call:[phone] * Thank you, Roxana Moreau RN [facility]
[2017-01-02] MEDS: Insulin Lispro (humaLOG) 100 Units/ml Inj SC SCH ×4 (09:28→22:41)
[2017-01-02] MEDS: Levothyroxine 125 MCG TAB PO SCH (09:30)
[2017-01-02 12:42] LABS: BASO # 0.1 K/uL (0.0-0.2); BASO % 0.6 % (0.0-2.0); EOS % 0.3 % (0.0-4.0); HEMATOCRIT 36.4 % (34.0-47.0); LYMPH # 1.5 K/uL (1.0-4.3); LYMPH % 16.5 % (20.0-40.0); MEAN CELL VOLUME 83.2 fl (81.0-99.0); MEAN CORPUSCULAR HEMOGLOBIN 27.1 pg (27.0-31.0); MEAN CORPUSCULAR HGB CONC 32.6 g/dL (33.0-37.0); MEAN PLATELET VOLUME 8.3 fl (7.2-11.7); MONO # 1.2 K/uL (0.0-0.8); MONO % 14.2 % (0.0-10.0); NEUT % 68.4 % (50.0-75.0); WHITE BLOOD COUNT 8.8 K/uL (4.8-10.8)
[2017-01-02 12:50] LABS: ALB/GLOB RATIO 0.9 (1.0-2.1); BILIRUBIN,TOTAL 0.4 mg/dl (0.2-1.3); BLOOD UREA NITROGEN 23 mg/dl (7-17); CHLORIDE 101 mmol/L (98-107); GFR AFRICAN-AMERICAN > 60; GLUCOSE,RANDOM 202 mg/dL (65-105); POTASSIUM 4.2 MMOL/L (3.6-5.0); TOTAL PROTEIN 6.6 G/DL (6.3-8.2)
[2017-01-02 13:33] LABS: ALKALINE PHOSPHATASE 92 U/L (38-126); ALT/SGPT 21 U/L (9-52); AST/SGOT 39 U/L (14-36); CARBON DIOXIDE 27 mmol/L (22-30); SODIUM 138 mmol/l (132-148)
--- NOTE | 2017-01-02 14:39 | CP.PCM.PN ---
Subjective - Date & Time of Evaluation Date of Evaluation: 01/02/17 Time of Evaluation: 09:35 - Subjective Subjective: F/u Ureter Colic/ L Urethral calculus. Pt S/P Cystoscopy, stent placement, no fever, feels better today. Objective - Vital Signs/Intake and Output Vital Signs (last 24 hours): Temp Pulse Resp BP Pulse Ox 98.2 F 82 18 122/78 93 L 01/02/17 07:38 01/02/17 07:38 01/02/17 07:38 01/02/17 07:38 01/02/17 10:48 - Medications Medications: Current Medications Acetaminophen (Tylenol 325mg Tab) 650 mg PO Q4 PRN PRN Reason: Temp 100 and above Last Admin: 01/02/17 03:31 Dose: 650 mg Albuterol (Ventolin Hfa 90 Mcg/Actuation (8 G)) 2 puff IH Q6H PRN PRN Reason: Shortness of Breath Alprazolam (Xanax) 2 mg PO Q8 PRN PRN Reason: Agitation Last Admin: 01/02/17 09:50 Dose: 2 mg Gabapentin (Neurontin) 400 mg PO BID [facility] Last Admin: 01/02/17 09:30 Dose: Not Given Hydromorphone HCl (Dilaudid) 2 mg IVP Q4H PRN PRN Reason: Pain, severe (8-10) Last Admin: 01/02/17 01:30 Dose: 2 mg Ceftriaxone Sodium 1 gm/ (Sodium Chloride) 100 mls @ 100 mls/hr IVPB DAILY [facility] Last Admin: 01/02/17 09:27 Dose: Not Given Insulin Human Lispro (Humalog) 0 units SC ACHS [facility] PRN Reason: Protocol Last Admin: 01/02/17 09:28 Dose: 1 units Levothyroxine Sodium (Synthroid) 125 mcg PO DAILY@0630 [facility] Last Admin: 01/02/17 09:30 Dose: 125 mcg Methadone HCl (Methadone) 10 mg PO QID [facility] Last Admin: 01/02/17 09:50 Dose: 10 mg Tamsulosin HCl (Flomax) 0.4 mg PO DAILY PRN PRN Reason: Pain Last Admin: 01/02/17 09:31 Dose: 0.4 mg - Labs Labs: 01/02/17 12:32 01/02/17 12:32 PT 12.2 SECONDS (9.6-11.2) H 01/01/17 06:20 INR 1.17 (0.92-1.08) H 01/01/17 06:20 APTT 35.0 SECONDS (23.3-32.5) H 01/01/17 06:20 - Constitutional Appears: No Acute Distress - Head Exam Head Exam: NORMAL INSPECTION - Eye Exam Eye Exam: PERRL - ENT Exam ENT Exam: Normal Oropharynx - Neck Exam Neck Exam: Normal Inspection - Respiratory Exam Respiratory Exam: NORMAL BREATHING PATTERN Additional comments: Left Mastectomy with abdominal flap. - Cardiovascular Exam Cardiovascular Exam: REGULAR RHYTHM - GI/Abdominal Exam GI & Abdominal Exam: Soft, Tenderness (LLQ, suprapubic.), Normal Bowel Sounds. absent: Distended, Guarding, Rebound - Exam Additional comments: L Ureteral Stent placement - Extremities Exam Extremities Exam: Normal Inspection - Back Exam Back Exam: tenderness (L Flank) - Neurological Exam Neurological Exam: Alert, Oriented x3. absent: Motor Sensory Deficit - Psychiatric Exam Psychiatric exam: Anxious - Skin Skin Exam: Warm Assessment and Plan (1) Ureter colic Status: Acute (2) Ureteral calculus, left Status: Acute (3) Sepsis Status: Acute (4) UTI (urinary tract infection) Status: Acute (5) Renal calculus, right Status: Acute (6) CKD (chronic kidney disease) Status: Acute (7) Diabetes mellitus Status: Acute (8) Stage IV carcinoma of breast Status: Chronic (9) Hypothyroidism Status: Acute - Assessment and Plan (Free Text) Plan: U C-S: + E Coi, Continue with Rocephin and rest of Tx.
--- NOTE | 2017-01-02 14:50 | PN ---
DATE: 01/02/2017 The patient is feeling much better today, 01/02/2017 at around 2:20 p.m. She is currently afebrile. Her temperature is 98.2 on IV Rocephin. Her urine cultures were positive for E. coli which were res istant to Cipro but sensitive to Rocephin. KUB done on 01/01/2017 was not able to identify the left midureteral stones. PHYSICAL EXAMINATION: Her abdomen is soft, not distended or tender. She currently has no CVA tender ness and no suprapubic tenderness, and is relatively asymptomatic with the left ureteral stent. LABORATORY DATA: Today, 01/02/2017, shows a CBC with a WBC count of 8.8 with a hemoglobin of 11.9, h ematocrit of 36.4 and a platelet count of 141,000. A chem profile shows a sodium of 138, potassium 4 .2, chloride 101, CO2 27, BUN and creatinine of 23 and 0.9 respectively with a GFR of greater than 60 . Her glucose was around 202. Calcium is 8.0. Her AST was 39 and ALT was 21. Alkaline phosphatase was 92. PLAN: The patient probably will be discharged home tomorrow on oral Ceftin 500 mg b.i.d. for at leas t 2 weeks for treatment of her acute pyelonephritis. We will get another KUB as an outpatient to see if we can see the stones and maybe schedule the patient for a left midureteral ESWL at [facility] in [place]. Pierre Wilson MD cc: [phone] TT: 01/02/2017 14:50:19 Confirmation # [id number] Dictation # [id number] mn
[2017-01-02 16:07] VITALS: RESP 20
[2017-01-02 21:36] VITALS: O2SAT 94
[2017-01-03] MEDS: Levothyroxine 125 MCG TAB PO SCH (06:29)
[2017-01-03] MEDS: Insulin Lispro (humaLOG) 100 Units/ml Inj SC SCH ×2 (06:43→12:01)
[2017-01-03 08:29] VITALS: BP 155/89; PULSE 73; TEMP 97.2
--- NOTE | 2017-01-03 11:06 | CP.PCM.PCO ---
Assessment/Plan - Assessment/Plan Assessment (Free Text): Pt stable in no apparent distress. Denies pain today, states she feels well and ready to go home. Blood work and vitals reviewed with Dr. Wilson and Dr. Evans. Both cleared patient for d/c home on Ceftin x 2 weeks, Rx given. Rx given for Metformin. Pt to f/u with Dr. Wilson and PMD in 1 week for continued diabetic management.
== END 2017-01-03 12:30 | disposition home or self-care (01) | DRG 872 ==
LOC: H.ER 08:53 → H.ERHOLD 09:40 → H.MEDSURG1 12:19 → OBSVTOIN 01-01 09:04
PROVIDERS: ADMIT Internal Medicine Pulmonary Disease; ATTEND Internal Medicine Pulmonary Disease
PROC: 0T778DZ Dilation of Left Ureter with Intraluminal Device, Via Natural or Artificial Opening Endoscopic (ICD-10-PCS; principal; 2017-01-01 11:30)
DX: A41.9 Sepsis, unspecified organism (principal); N17.9 Acute kidney failure, unspecified; E11.22 Type 2 diabetes mellitus with diabetic chronic kidney disease; E11.65 Type 2 diabetes mellitus with hyperglycemia; N13.6 Pyonephrosis; C50.912 Malignant neoplasm of unspecified site of left female breast; B96.20 Unspecified Escherichia coli [E. coli] as the cause of diseases classified elsewhere; I12.9 Hypertensive chronic kidney disease with stage 1 through stage 4 chronic kidney disease, or unspecified chronic kidney disease; N13.2 Hydronephrosis with renal and ureteral calculous obstruction; N20.2 Calculus of kidney with calculus of ureter; E03.9 Hypothyroidism, unspecified; G89.29 Other chronic pain; N18.9 Chronic kidney disease, unspecified; G62.9 Polyneuropathy, unspecified